=== PATIENT | female | born 1980 | race Caucasian/White ===

== ENCOUNTER 2017-02-27 11:22 | Emergency (ER) | payer MEDICAID, OTHER ==
[~2017-02-27] VITALS: Ht 170.2 cm; Wt 70.0 kg
[~2017-02-27 11:22] MED LIST: ALBUAER3 INH; AUGM875T PO; FLUC150T PO; NORE5TAB PO; XYZA5TAB2 PO
[2017-02-27 11:24] VITALS: BP 138/81; PULSE 81; RESP 14; TEMP 99.1; O2SAT 98
[2017-02-27 12:07] LABS: AUTOMATED NEUTROPHIL # 7.1 TH/MM3 (1.8-7.7); BASOPHIL # 0.1 TH/MM3 (0-0.2); BASOPHIL % 0.6 % (0.0-2.0); EOSINOPHIL # 0.1 TH/MM3 (0-0.4); EOSINOPHIL % 0.6 % (0.0-4.0); HEMATOCRIT 43.2 % (35.0-46.0); HEMO FLAGS DIFF FINAL; LYMPH % 16.8 % (9.0-44.0); LYMPHOCYTE # 1.6 TH/MM3 (1.0-4.8); MEAN CELL VOLUME 94.1 FL (80.0-100.0); MEAN CORPUSCULAR HEMOGLOBIN 31.5 PG (27.0-34.0); MEAN CORPUSCULAR HGB CONC 33.4 % (32.0-36.0); PLATELET COUNT 262 TH/MM3 (150-450); RED CELL DISTRIBUTION WIDTH 14.5 % (11.6-17.2); WHITE BLOOD COUNT 9.3 TH/MM3 (4.0-11.0)
[2017-02-27 12:47] LABS: BETA HCG QUANT 1182 MIU/ML (0-5)
[2017-02-27 13:09] LABS: BACTERIA, URINE MOD /hpf; BLOOD, URINE NEG (NEG); COMMENT (UR) CULTURE INDICATED; CULTURE IF INDICATED CULTURE INDICATED; GLUCOSE,URINE NEG (NEG); KETONE, URINE NEG (NEG); NITRITE,URINE NEG (NEG); URINE COLOR YELLOW (YELLW/STRAW)
--- NOTE | 2017-02-27 13:12 | PD ---
HPI Chief Complaint: Related Problem Time Seen by Provider: 11:50 Travel History International Travel<30 days: No Contact w/Intl Traveler<30days: No Traveled to known affect area: No History of Present Illness HPI Is a 36 year-old woman who presents to the emergency department complaining of vaginal bleeding and cramping. She believes she is about 3 months . Her last menstrual periods was approximately November 15. She is 3 para 1, 1 , 0, 0. She had delivery early of her last because of cervical incompetence. She was told that she would need a cerclage at 12 weeks if you' re again. She is in the process of getting her Medicaid strained out that she can see an OB doctor. Symptoms started about 3 days ago of vaginal bleeding and cramping. No other symptoms. She otherwise has been feeling well. Symptoms been persistent. She is Rh+. History Past Medical History Medical History: Denies Significant Hx Tetanus Vaccination: Unknown Influenza Vaccination: No LMP: 11/17/16 Social History Alcohol Use: No Tobacco Use: Yes (3 cigarettes per day for 20 years) Allergies-Medications (Allergen,Severity, Reaction): Coded Allergies: No Known Allergies (Unverified , 02/27/17) Reported Meds & Prescriptions Reported Meds & Active Scripts Active No Active Prescriptions or Reported Medications Review of Systems Except as stated in HPI: all other systems reviewed are Neg Physical Exam Narrative GENERAL: Well-appearing 36 year-old woman, nontoxic, no acute distress. SKIN: Focused skin assessment warm/dry. HEAD: Atraumatic. Normocephalic. EYES: Pupils equal and round. No scleral icterus. No injection or drainage. ENT: No nasal bleeding or discharge. Mucous membranes pink and moist. NECK: Trachea midline. No JVD. CARDIOVASCULAR: Regular rate and rhythm. No murmur appreciated. RESPIRATORY: No accessory muscle use. Clear to auscultation. Breath sounds equal bilaterally. GASTROINTESTINAL: Abdomen soft, non-tender, nondistended. Hepatic and splenic margins not palpable. MUSCULOSKELETAL: No obvious deformities. PELVIC: Normal extremity edema genitalia. Some bloody discharge in the vaginal vault. Normal appearance of the cervix. On bimanual exam she has mild diffuse pelvic tenderness. No significant cervical motion tenderness, palpable uterine enlargement, or adnexal masses. Data Data Last Documented VS Vital Signs Date Time Temp Pulse Resp B/P (MAP) Pulse Ox O2 Delivery O2 Flow Rate FiO2 02/27/17 14:15 77 15 135/79 (97) 99 Room Air 02/27/17 11:24 99.1 Orders Orders Complete Blood Count With Diff (02/27/17 11:50) Beta Hcg (Quant/Titer) (02/27/17 11:50) Ed Poc Ultrasound (02/27/17 ) Gc And Chlamydia Pcr (02/27/17 11:50) Wet Prep Profile (02/27/17 11:50) Urinalysis - C+S If Indicated (02/27/17 12:13) Urine Culture (02/27/17 12:20) Us Pelvis (Ques Pr/Ect)W Trans (02/27/17 ) Labs Laboratory Tests Test 02/27/17 11:50 02/27/17 12:20 White Blood Count 9.3 TH/MM3 Red Blood Count 4.60 MIL/MM3 Hemoglobin 14.5 GM/DL Hematocrit 43.2 % Mean Corpuscular Volume 94.1 FL Mean Corpuscular Hemoglobin 31.5 PG Mean Corpuscular Hemoglobin Concent 33.4 % Red Cell Distribution Width 14.5 % Platelet Count 262 TH/MM3 Mean Platelet Volume 7.3 FL Neutrophils (%) (Auto) 76.0 % Lymphocytes (%) (Auto) 16.8 % Monocytes (%) (Auto) 6.0 % Eosinophils (%) (Auto) 0.6 % Basophils (%) (Auto) 0.6 % Neutrophils # (Auto) 7.1 TH/MM3 Lymphocytes # (Auto) 1.6 TH/MM3 Monocytes # (Auto) 0.6 TH/MM3 Eosinophils # (Auto) 0.1 TH/MM3 Basophils # (Auto) 0.1 TH/MM3 CBC Comment DIFF FINAL Differential Comment Human Chorionic Gonadotropin, Quant 1182 MIU/ML Urine Color YELLOW Urine Turbidity CLOUDY Urine pH 8.0 Urine Specific [place] 1.017 Urine Protein NEG mg/dL Urine Glucose (UA) NEG mg/dL Urine Ketones NEG mg/dL Urine Occult Blood NEG Urine Nitrite NEG Urine Bilirubin NEG Urine Urobilinogen LESS THAN 2.0 MG/DL Urine Leukocyte Esterase NEG Urine RBC 3 /hpf Urine WBC 3 /hpf Urine Amorphous Sediment OCC Urine Bacteria MOD /hpf Microscopic Urinalysis Comment CULTURE INDICATED Clue Cells (Wet Prep) NONE SEEN Vaginal Trichomonas (Wet Prep) NONE SEEN Vaginal Yeast (Wet Prep) NONE SEEN Chlamydia trachomatis DNA (PCR) NOT DETECTED Neisseria gonorrhoeae DNA (PCR) NOT DETECTED MDM Medical Decision Making Medical Screen Exam Complete: Yes Emergency Medical Condition: Yes Interpretation(s) LABS: CBC is unremarkable. HCG 1182 UA is unremarkable Wet preps negative GC chlamydia is negative Pelvic ultrasound: Solitary intrauterine gestation. No heart rate. Probable early IUP. Follow-up ultrasound suggested. Differential Diagnosis , threatened AB, ectopic, molar , other Narrative Course Medical decision-making 36 year-old woman approximately 3 months , looks well. Her vaginal bleeding and cramping. Pelvic exam is overall unremarkable. Bedside ultrasound however looks abnormal. There is heterogenous densities in the uterus without identifiable intrauterine . We'll get a formal ultrasound, check labs, reassess. Diagnosis Primary Impression: Threatened Additional Instructions: Follow-up with an assistant associate full professor for care and further evaluation. Return to the emergency department for any new or worsening symptoms. Take OTC vitamins. Scripts No Active Prescriptions or Reported Meds Disposition: 01 DISCHARGE HOME Condition: Stable Carloz Sousa MD Feb 27, 2017 13:12
[2017-02-27 14:15] VITALS: BP 135/79; PULSE 77; RESP 15; O2SAT 99
[2017-02-27 15:05] LABS: CHLAMYDIA PCR NOT DETECTED (NOT DETECT); NEISSERIA PCR NOT DETECTED (NOT DETECT)
--- NOTE | 2017-02-27 15:29 | RADRPT ---
EXAM DATE/TIME: 02/27/2017 13:29 [facility] COMPARISON: No previous studies available for comparison. INDICATIONS : Pelvic pain. LAB(S): Beta-hC MEDICAL HISTORY : . SURGICAL HISTORY : section. ENCOUNTER: Initial ACUITY: 1 day PAIN SCORE: 3/10 LOCATION: Bilateral pelvis MEASUREMENTS: UTERUS: 10.3 x 7.2 x 6.5 cm ENDOMETRIAL STRIPE: >20 mm RIGHT OVARY: not seen LEFT OVARY: not seen FREE FLUID: No CROWN RUMP LENGTH: 0.42 = 6 WKS 1 DAYS FHR: not seen BPM FINDINGS: UTERUS: A solitary intrauterine gestation is observed. There is a gestational sac seen as a very mild irregul arity to its contour. There is a yolk sac and pole. Mean sac diameter is 2.3 cm which equals 6 weeks 6 days gestational age. Stuckey-rump length measures 0.42 cm which equals 6 weeks one day gestati onal age. No discernible heart rate activity. A small subchorionic hemorrhage measuring 1 cm is noted. RIGHT OVARY: The ovary is not visualized. No adnexal mass or fluid collection is seen. LEFT OVARY: Ovary contains no mass or significant cystic lesion. MISCELLANEOUS: No free fluid. CONCLUSION: 1. Solitary intrauterine gestation. I am unable to detect any heart rate activity. This could r elate to an early IUP that is too early to detect a heart rate or this could relate to a demise. Short-term followup ultrasound suggested. Michael Salazar Jr., MD on February 27, 2017 at 15:16 Board Certified Radiologist. This report was verified electronically.
[2017-02-27 16:24] VITALS: BP 131/82
== END 2017-02-27 16:26 | disposition home or self-care (01) ==
LOC: NEPD 11:22
DX: O20.0 Threatened abortion (principal); O99.332 Smoking (tobacco) complicating pregnancy, second trimester; Z3A.00 Weeks of gestation of pregnancy not specified
CPT/HCPCS: 76700; 76817; 81001; 84702; 85025; 87086; 87210; 87491; 87591

== ENCOUNTER 2017-03-02 14:49 | Emergency (ER) | payer MEDICAID ==
[~2017-03-02] VITALS: Ht 170.2 cm; Wt 69.0 kg
[2017-03-02 14:55] VITALS: BP 130/76; PULSE 120; RESP 22; TEMP 97.9; O2SAT 99
--- NOTE | 2017-03-02 19:33 | PD ---
HPI Chief Complaint: Related Problem Time Seen by Provider: 19:16 Travel History International Travel<30 days: No Contact w/Intl Traveler<30days: No Traveled to known affect area: No History of Present Illness HPI 36-year-old female complains of having pain and vaginal bleeding. Patient was seen in emergency room 3 days ago with diagnosis threatened AB. Pelvic ultrasound done 3 days ago shows solitary intrauterine gestation without heart rate activity. Beta hCG done 3 days ago was 1182. Patient was discharged home with instruction to follow-up with local physician. Patient states that she does not have a local OB and return here for persistent vaginal bleeding and pelvic pain. Patient states that she has increasing bleeding vaginally and passing blood and blood clots and tissue. Patient denies any headache. Patient denies any chest pain or shortness of breath. Patient denies any fever chills. Patient's blood type O+. Patient states that her last menstruation period was approximately November 15. Patient is 3 para 1. Patient has history of delivery secondary to cervical incompetence in the past. PFSH Past Medical History Diabetes: No Patient Takes Glucophage: No Diminished Hearing: No Immunizations Current: Yes Tetanus Vaccination: > 5 Years Influenza Vaccination: Yes ?: : 3 Para: 2 Past Surgical History Surgical History: No Previous Surgery Section: Yes Pacemaker: No Social History Alcohol Use: No Tobacco Use: Yes (3 cigarettes per day for 20 years) Substance Use: No Allergies-Medications (Allergen,Severity, Reaction): Coded Allergies: No Known Allergies (Unverified , 02/27/17) Reported Meds & Prescriptions Reported Meds & Active Scripts Active No Active Prescriptions or Reported Medications Review of Systems General / Constitutional: No: Fever Eyes: No: Visual changes HENT: No: Headaches Cardiovascular: No: Chest Pain or Discomfort Respiratory: No: Shortness of Breath Gastrointestinal: No: Abdominal Pain Genitourinary: Positive: Pelvic Pain, Vaginal Bleeding, No: Dysuria Musculoskeletal: No: Pain Skin: No Rash Neurologic: No: Weakness Psychiatric: No: Depression Endocrine: No: Polydipsia Hematologic/Lymphatic: No: Easy Bruising Physical Exam Narrative GENERAL: Well-nourished, well-developed patient. SKIN: Focused skin assessment warm/dry. HEAD: Normocephalic. EYES: No scleral icterus. No injection or drainage. NECK: Supple, trachea midline. No JVD or lymphadenopathy. CARDIOVASCULAR: Regular rate and rhythm without murmurs, gallops, or rubs. RESPIRATORY: Breath sounds equal bilaterally. No accessory muscle use. GASTROINTESTINAL: Abdomen soft, non-tender, nondistended. MUSCULOSKELETAL: No cyanosis, or edema. BACK: Nontender without obvious deformity. No CVA tenderness. GRADE TEACHER exam: Patient has small amount of blood in the vaginal vault. Uterus is mildly enlarged with mild tenderness on palpation. No adnexal masses tenderness. Data Data Last Documented VS Vital Signs Date Time Temp Pulse Resp B/P (MAP) Pulse Ox O2 Delivery O2 Flow Rate FiO2 03/02/17 21:18 72 17 03/02/17 21:17 123/64 (83) 98 Room Air 03/02/17 14:55 97.9 Orders Orders Beta Hcg (Quant/Titer) (03/02/17 19:24) Complete Blood Count With Diff (03/02/17 19:24) Iv Access Insert/Monitor (03/02/17 19:24) Us Pelvis (Ques Pr/Ect)W Trans (03/02/17 19:33) Labs Laboratory Tests Test 03/02/17 19:48 White Blood Count 13.4 TH/MM3 Red Blood Count 4.20 MIL/MM3 Hemoglobin 13.3 GM/DL Hematocrit 39.6 % Mean Corpuscular Volume 94.3 FL Mean Corpuscular Hemoglobin 31.8 PG Mean Corpuscular Hemoglobin Concent 33.7 % Red Cell Distribution Width 14.6 % Platelet Count 246 TH/MM3 Mean Platelet Volume 8.1 FL Neutrophils (%) (Auto) 73.0 % Lymphocytes (%) (Auto) 18.7 % Monocytes (%) (Auto) 7.1 % Eosinophils (%) (Auto) 0.8 % Basophils (%) (Auto) 0.4 % Neutrophils # (Auto) 9.8 TH/MM3 Lymphocytes # (Auto) 2.5 TH/MM3 Monocytes # (Auto) 0.9 TH/MM3 Eosinophils # (Auto) 0.1 TH/MM3 Basophils # (Auto) 0.0 TH/MM3 CBC Comment DIFF FINAL Differential Comment Human Chorionic Gonadotropin, Quant 361 MIU/ML MDM Medical Decision Making Medical Screen Exam Complete: Yes Emergency Medical Condition: Yes Interpretation(s) 21:42 PM. CBC with WBC 13.4. 73 neutrophil. Beta hCG 361. Beta hCG done on 10/13 was 1182. Differential Diagnosis Differential diagnosis including threatened AB, incomplete AB, completed AB, ectopic . Narrative Course 36-year-old female with vaginal bleeding and pelvic pain. Pelvic ultrasound 3 days ago show intrauterine without heart tone. Patient passed blood clots and tissue 7 ED. Tissue will be sent to pathology for products of conception examination. Diagnosis Primary Impression: Complete Patient Instructions: General Instructions Additional Instructions: vitamin with iron as directed. Follow-up with outbound telemarketing representative. Return if persistent problem with bleeding, fever, increase pelvic pain. Med/Other Pt SpecificInfo: No Change to Meds Scripts No Active Prescriptions or Reported Meds Disposition: 01 DISCHARGE HOME Condition: Stable Carlos Shearer MD Mar 02, 2017 19:33
[2017-03-02 21:06] LABS: AUTOMATED NEUTROPHIL # 9.8 TH/MM3 (1.8-7.7); BASOPHIL % 0.4 % (0.0-2.0); EOSINOPHIL # 0.1 TH/MM3 (0-0.4); EOSINOPHIL % 0.8 % (0.0-4.0); HEMATOCRIT 39.6 % (35.0-46.0); HEMO FLAGS DIFF FINAL; LYMPH % 18.7 % (9.0-44.0); LYMPHOCYTE # 2.5 TH/MM3 (1.0-4.8); MEAN CELL VOLUME 94.3 FL (80.0-100.0); MEAN CORPUSCULAR HEMOGLOBIN 31.8 PG (27.0-34.0); MEAN CORPUSCULAR HGB CONC 33.7 % (32.0-36.0); MONO % 7.1 % (0.0-8.0); PLATELET COUNT 246 TH/MM3 (150-450); RED CELL DISTRIBUTION WIDTH 14.6 % (11.6-17.2); WHITE BLOOD COUNT 13.4 TH/MM3 (4.0-11.0)
[2017-03-02 21:17] VITALS: BP 123/64; PULSE 72; RESP 17; O2SAT 98
[2017-03-02 21:24] LABS: BETA HCG QUANT 361 MIU/ML (0-5)
--- NOTE | 2017-03-02 21:48 | RADRPT ---
EXAM DATE/TIME: 03/02/2017 19:53 This report includes an Addendum and supersedes previous reports for this exam. [facility] COMPARISON: US PELVIS (QUEST PREG/ECTOPIC) W/TRANSVAG, February 27, 2017, 13:29. INDICATIONS : Bleeding. LAB(S): Beta-hC MEDICAL HISTORY : . SURGICAL HISTORY : section. ENCOUNTER: Subsequent ACUITY: 4-6 days PAIN SCORE: 7/10 LOCATION: Bilateral pelvis MEASUREMENTS: UTERUS: 10.3 x 5.9 x 5.3 cm ENDOMETRIAL STRIPE: 13 mm RIGHT OVARY: 2.4 x 2.0 x 1.0 cm LEFT OVARY: 3.3 x 2.3 x 2.3 cm FREE FLUID: No FINDINGS: E. intrauterine noted on the prior examinations absent. Endometrium is heterogeneous with n o definite evidence of retained products of conception. This is consistent with complete . Ov ruslan are essentially normal other than a suggestion of a hypoechoic area in the left ovary 1.7 cm in size which may represent a collapsed corpus luteal cyst. CONCLUSION: Intrauterine noted on prior examination scoliosis indicating complete . No retained products of conception. Avery Chung MD on March 02, 2017 at 21:43 Board Certified Radiologist. This report was verified electronically. ADDENDUM: There is a typographical error in the conclusion. This should read intrauterine pregna ncy noted on prior examination is patent on today's examination indicating complete Avery Chung MD on March 02, 2017 at 22:13 Board Certified Radiologist. This report was verified electronically.
== END 2017-03-02 23:06 | disposition home or self-care (01) ==
LOC: NEPD 14:49
DX: O03.9 Complete or unspecified spontaneous abortion without complication (principal); Z72.0 Tobacco use
CPT/HCPCS: 76700; 76817; 84702; 85025; 88304; 88305; 99284